=== PATIENT | male | born 1965 | race American Indian/Alaskan Native ===

== ENCOUNTER 2017-04-25 18:27 | Emergency (ER) | payer SELFPAY ==
[2017-04-25 18:43] VITALS: TEMP 98
--- NOTE | 2017-04-25 19:20 | C.PDOC ---
History Of Present Illness 52 yo male c/o right 4th finger pain and swelling x 1 month. Pt notes that a month ago, he had a ring on his 4th finger, he jammed his finger in the door and the next morning he woke up with his finger swollen. A friend cut of the ring but this finger continues to have swelling and pain. NOtes pain radiates up the arm. Also notes some pain on the thumb. Pt is right hand dominant. 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 Has not gotten it checked out . Does not take any pain medication. Time Seen by Provider: 04/25/17 19:11 Chief Complaint (Nursing): Finger,Hand,&Wrist History Per: Patient History/Exam Limitations: no limitations Onset/Duration Of Symptoms: Days (1 month) Current Symptoms Are (Timing): Still Present Past Medical History Vital Signs: Last Vital Signs Temp 98 F 04/25/17 18:39 Pulse 56 L 04/25/17 19:53 Resp 16 04/25/17 19:53 BP 115/66 04/25/17 19:53 Pulse Ox 98 04/25/17 19:53 Family History: States: Unknown Family Hx - Social History Hx Alcohol Use: No Hx Substance Use: No Review Of Systems Except As Marked, All Systems Reviewed And Found Negative. Constitutional: Negative for: Fever Neurological: Negative for: Weakness, Numbness Physical Exam - Physical Exam Appears: Well, Non-toxic, No Acute Distress Skin: Warm, Dry Head: Atraumatic, Normacephalic Eye(s): bilateral: Normal Inspection, EOMI Nose: Normal Oral Mucosa: Moist Chest: Symmetrical Respiratory: No Accessory Muscle Use Extremity: No Normal ROM (decreased secondary to pain), Tenderness ((+) swelling and tenderness to the 4th PIP), Capillary Refill (< 2 sec), Swelling Extremity: Bilateral: Normal Color And Temperature Pulses: Left Radial: Normal, Right Radial: Normal Neurological/Psych: Oriented x3, Normal Speech, Normal Motor, Normal Sensation ED Course And Treatment O2 Sat by Pulse Oximetry: 97 - Other Rad Hand XR X-Ray: Interpreted by Me, Viewed By Me Interpretation: No acute fracture. No dislocation Progress Note: Pt refused pain medicaiton. Instructed to follow up with hand specialist in 1-2 days. Disposition - Disposition Referrals: ElGazzar,Yaser S, MD [Staff Provider] - Disposition: HOME/ ROUTINE Disposition Time: 19:40 Condition: STABLE Additional Instructions: Follow up with hand specialist in 1-2 days. REturn to ER if symptoms persist or worsen. Instructions: Hand Sprain (ED) Forms: [facility] (Paraguayan) - Clinical Impression Clinical Impression: Finger pain
[2017-04-25 19:54] VITALS: BP 115/66; PULSE 56; RESP 16
[2017-04-25 23:10] VITALS: O2SAT 97
--- NOTE | 2017-04-26 08:58 | RAD ---
PROCEDURE: Right Hand Radiographs. HISTORY: pain, swelling COMPARISON: None. FINDINGS: BONES: A 6 x 5 mm radial and volar sided exostosis off the 4th proximal phalanx -distal aspect noted just distal to this the 4th proximal interphalangeal surrounding soft tissues are mildly swollen No fracture. JOINTS: Trace tiny subchondral arthritic changes. Fourth and 5th metacarpal phalangeal joint levels -distal interphalangeal joint levels 2nd through 5th and 1st metacarpal phalangeal joint level SOFT TISSUES: Normal. OTHER FINDINGS: None. IMPRESSION: Fourth proximal phalangeal bony exostosis. Consider MRI of the right hand to evaluate surrounding soft tissues
== END 2017-04-25 19:53 | disposition home or self-care (01) ==
LOC: C.ER 18:27
DX: M79.644 Pain in right finger(s) (principal)

== ENCOUNTER 2017-10-21 09:25 | Emergency (ER) | payer OTHER ==
[2017-10-21 09:30] VITALS: BMI 23.3
[2017-10-21] MEDS ORDERED: Lidocaine 2% Inj (20ml) INFIL ONE (10:19)
[2017-10-21] MEDS ORDERED: Lidocaine 2% Inj (20ml) ONE (10:22)
[2017-10-21] MEDS ORDERED: Tdap Vaccine 0.5 ml Vial (10-64 yrs) IM ONE ×2 (11:05→11:09)
--- NOTE | 2017-10-21 11:09 | C.PDOC ---
History Of Present Illness Patient is a 52 y/o male who presents to the ED s/p sustaining a laceration to the left hand while at work. 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 Rates pain 8/10 that radiates up the left arm. Patient has no other physical complaints at this time. Time Seen by Provider: 10/21/17 09:40 Chief Complaint (Nursing): Finger,Hand,&Wrist History Per: Patient History/Exam Limitations: no limitations Onset/Duration Of Symptoms: Mins, Sudden Onset Current Symptoms Are (Timing): Still Present Quality: "Pain" Recent travel outside of the [place]: No Past Medical History Reviewed: Historical Data, Nursing Documentation, Vital Signs Vital Signs: Last Vital Signs Temp 98 F 10/21/17 11:19 Pulse 62 10/21/17 11:19 Resp 20 10/21/17 11:19 BP 122/88 10/21/17 11:19 Pulse Ox 99 10/21/17 11:19 - Medical History PMH: No Chronic Diseases Surgical History: No Surg Hx Family History: States: No Known Family Hx - Social History Hx Tobacco Use: No Hx Alcohol Use: No Hx Substance Use: No - Immunization History Hx Tetanus Toxoid Vaccination: No Hx Influenza Vaccination: No Hx Pneumococcal Vaccination: No Review Of Systems Constitutional: Negative for: Fever, Chills Musculoskeletal: Positive for: Arm Pain (left arm radiating from hand) Skin: Positive for: Other (laceration to the left hand ) Physical Exam - Physical Exam Appears: Well Skin: Normal Color, Warm, Dry, Other (semicircular 5cm long laceration to left palm, flap of skin exposes deep laceration. No foreign body.) ED Course And Treatment O2 Sat by Pulse Oximetry: 100 Laceration - Laceration Repair left hand Wound Length (In cm): 5 Description Of Wound: Irregular (semicircular) Wound Cleansed With: Betadine Anesthesia: Lidocaine 2% (8mL) Wound Examination: No FB With Wound Exploration Wound Closure: Suture (10) Suture Technique And Material Used: Interrupted, Nylon (4.0) Wound Complexity: Simple Medical Decision Making Medical Decision Making: Patient's wound was explored, washed with soap and water, and cleaned in sterile betadine. Procedure was explained to patient and received verbal consent. Patient's wound was successfully closed and dressed in sterile fashion ; laceration was tolerated well and care instructions were given. Patient is stable for discharge and is comfortable with going home. Disposition Counseled Patient/Family Regarding: Diagnosis, Need For Followup, Rx Given - Disposition Disposition: HOME/ ROUTINE Disposition Time: 11:05 Condition: STABLE Additional Instructions: take antibiotics. keep area clean and dry for 48 hours. Follow up with your doctor, or the emergency department for suture removal in 10 days. Return immediately id pain, bleeding, pus drainage. Prescriptions: Cephalexin [Keflex] 500 mg PO QID #40 capsule Instructions: Laceration Repair Forms: [facility] (Faroese), General Discharge Instructions - POA Present On Arrival: None Location Of Wound: left palm - Clinical Impression Clinical Impression: Laceration of hand - Scribe Statement The provider has reviewed the documentation as recorded by the Scribe Najma Story All medical record entries made by the Scribe were at my direction and personally dictated by me. I have reviewed the chart and agree that the record accurately reflects my personal performance of the history, physical exam, medical decision making, and the department course for this patient. I have also personally directed, reviewed, and agree with the discharge instructions and disposition.
[2017-10-21 11:20] VITALS: BP 122/88; PULSE 62; RESP 20; TEMP 98
[2017-10-21 11:40] VITALS: O2SAT 100
== END 2017-10-21 11:20 | disposition home or self-care (01) ==
LOC: C.ER 09:25
DX: S61.412A Laceration without foreign body of left hand, initial encounter (principal); W25.XXXA Contact with sharp glass, initial encounter; Y99.0 Civilian activity done for income or pay; Z23 Encounter for immunization